=== PATIENT | male | born 1965 | race Caucasian/White ===

== ENCOUNTER 2022-06-12 19:31 | Emergency (ER) | payer MEDICAID ==
[~2022-06-12] VITALS: Ht 172.7 cm; Wt 78.0 kg
[2022-06-12 19:41] VITALS: BP 134/76
--- NOTE | 2022-06-12 19:58 | NUR ---
Patient taken to bed 1.
--- NOTE | 2022-06-12 20:30 | NUR ---
Patient resting in bed, A/Ox4, chest rise and fall symmetrical, no s/s of distress, on monitor.
[2022-06-12 22:25] LABS: BASOPHILS # (AUTO) 0.1 K/uL (0.00-0.22); BASOPHILS % (AUTO) 1.1 % (0.0-2.0); EOSINOPHILS # (AUTO) 2.2 K/uL (0-0.4); EOSINOPHILS % (AUTO) 46.1 % (0.0-4.0); HEMATOCRIT 22.2 % (36-52); HEMOGLOBIN 7.1 g/dL (12.0-18.0); MEAN CORPUSCULAR HEMOGLOBIN 26 pg (27-31); MEAN CORPUSCULAR HGB CONC 32 g/dL (33-37); MEAN CORPUSCULAR VOLUME 81.8 fL (80-94); MONOCYTES # (AUTO) 0.3 K/uL (0.8-1.0); MONOCYTES % (AUTO) 6.3 % (1.7-9.3); NEUTROPHILS # (AUTO) 1.2 K/uL (1.8-7.7); NEUTROPHILS % (AUTO) 25.5 % (42.2-75.2); PLATELET COUNT (AUTO) 87 K/uL (140-450); RED BLOOD CELL COUNT(AUTO) 2.72 MIL/uL (4.20-6.10); RED CELL DISTRIBUTION WIDTH 24.8 % (11.6-13.7); WHITE BLOOD COUNT (AUTO) 4.7 K/uL (4.8-10.8)
[2022-06-12 22:41] LABS: ALBUMIN 1.3 g/dL (3.4-5.0); ANION GAP 10.1 (8-16); ASPARTATE AMINOTRANSFERASE 33 U/L (15-37); CARBON DIOXIDE 23.5 mmol/L (21-32); CHLORIDE 109 mmol/L (98-107); CREATININE 0.8 mg/dL (0.6-1.3); GFR ARICAN-AMERICAN 129 mL/min (>90); GLUCOSE 98 mg/dL (74-106); LIPASE 134 U/L (73-393); POTASSIUM 3.6 mmol/L (3.5-5.1); SODIUM SERUM 139 mmol/L (136-145); TOTAL BILIRUBIN 1.4 mg/dL (0.0-1.0); UREA NITROGEN, BLOOD 7 mg/dL (7-18)
[2022-06-12] MEDS: KETOROLAC 30 MG/ML VIAL IM ONE (22:55)
[2022-06-12] MEDS: HYDROcodone/APAP 5/325 MG 1 TAB TAB PO ONE (22:56)
--- NOTE | 2022-06-12 22:59 | NUR ---
Patient resting in bed, A/Ox4, chest rise and fall symmetrical, no s/s of distress, on monitor.
--- NOTE | 2022-06-13 00:20 | NUR ---
Patient resting in bed, A/Ox4, chest rise and fall symmetrical, no s/s of distress, on monitor. Addendum: 06/13/22 at 0152 by [id number] Patient resting in bed, A/Ox4, chest rise and fall symmetrical, no c/o pain or s/s of distress, on monitor.
[2022-06-13] MEDS ORDERED: BEN10 PO (02:10)
[2022-06-13 02:33] VITALS: BP 121/74
--- NOTE | 2022-06-13 02:33 | NUR ---
Patient resting in bed, A/Ox4, chest rise and fall symmetrical, no c/o pain or s/s of distress, on monitor.
== END 2022-06-13 02:33 | disposition home or self-care (01) ==
LOC: MED 19:31
DX: K74.60 Unspecified cirrhosis of liver (principal); K40.20 Bilateral inguinal hernia, without obstruction or gangrene, not specified as recurrent; D64.9 Anemia, unspecified; D69.6 Thrombocytopenia, unspecified; Z79.899 Other long term (current) drug therapy
CPT/HCPCS: 36415; 74176; 80053; 83690; 84484; 85025; 93005; 96372; 99285; J1885

== ENCOUNTER 2022-12-06 01:15 | Inpatient (IN) | payer MEDICAID, OTHER ==
[~2022-12-06] VITALS: Ht 177.8 cm; Wt 64.2 kg
[2022-12-06] VITALS (20 sets, daily range): BP systolic 117–150; BP diastolic 46–77; PULSE 54–108; RESP 14–39; TEMP 96.4–98.8; O2SAT 97–100
[~2022-12-06 01:15] MED LIST: BEN10 PO
[2022-12-06] MEDS ORDERED: ONDANSETRON 4 MG/2 ML VIAL IVP ONE (01:30)
[2022-12-06 01:48] LABS: BASOPHILS % (AUTO) 0.1 % (0.0-2.0); EOSINOPHILS % (AUTO) 0.1 % (0.0-4.0); LYMPHOCYTES # (AUTO) 0.6 K/uL (2.0-11.5); LYMPHOCYTES % (AUTO) 14.4 % (20.5-51.1); MEAN CORPUSCULAR HEMOGLOBIN 27 pg (27-31); MEAN CORPUSCULAR HGB CONC 30 g/dL (33-37); MEAN CORPUSCULAR VOLUME 91.3 fL (80-94); MONOCYTES # (AUTO) 0.3 K/uL (0.8-1.0); MONOCYTES % (AUTO) 7.1 % (1.7-9.3); NEUTROPHILS # (AUTO) 3.5 K/uL (1.8-7.7); NEUTROPHILS % (AUTO) 78.3 % (42.2-75.2); PLATELET COUNT (AUTO) 39 K/uL (140-450); RED BLOOD CELL COUNT(AUTO) 1.27 MIL/uL (4.20-6.10); WHITE BLOOD COUNT (AUTO) 4.4 K/uL (4.8-10.8)
[2022-12-06 02:03] LABS: HEMOGLOBIN 3.5 g/dL (12.0-18.0)
[2022-12-06 02:04] LABS: HEMATOCRIT 11.6 % (36-52)
[2022-12-06] MEDS ORDERED: PANTOPRAZOLE 40 MG INJ VIAL IVP ONE (02:15)
[2022-12-06] MEDS ORDERED: OCTREOTIDE ACETATE 1.25 MG in NACL 0.9% 250 ML IV STA (02:15)
[2022-12-06] MEDS ORDERED: PANTOPRAZOLE 80 MG in NACL 0.9% 100 ML IVP SCH (02:15)
[2022-12-06 02:19] LABS: ALBUMIN 1.5 g/dL (3.4-5.0); ANION GAP 14.4 (8-16); CALCIUM 6.9 mg/dL (8.5-10.1); CARBON DIOXIDE 23.3 mmol/L (21-32); CREATININE 1.5 mg/dL (0.6-1.3); POTASSIUM 3.7 mmol/L (3.5-5.1); TOTAL BILIRUBIN 5.4 mg/dL (0.0-1.0); TOTAL PROTEIN, SERUM 6.3 g/dL (6.4-8.2)
[2022-12-06] MEDS ORDERED: CALCIUM GLUC 1 GM/50 mL NS BAG 50 ML IV ONE (02:35)
[2022-12-06] MEDS ORDERED: cefTRIAXone 1,000 MG VIAL ONE (02:54)
[2022-12-06 02:56] LABS: PARTIAL THROMBOPLASTIN TIME 43.6 secs (22-35.6)
[2022-12-06] MEDS ORDERED: OCTREOTIDE ACETATE 1000 MCG/5 ML VIAL ONE (02:57)
[2022-12-06 02:58] LABS: INR > 9.00 (0.8-1.2); PROTHROMBIN TIME > 120.0 secs (10.8-13.4)
[2022-12-06] MEDS ORDERED: PHYTONADIONE 10 MG in NACL 0.9% 50 ML IV ONE (03:05)
[2022-12-06] MEDS ORDERED: POTASSIUM CHLORIDE 10 MEQ TABER PO PRN (03:15)
[2022-12-06] MEDS ORDERED: MORPHINE SULFATE 4 MG/ML SYR IVP PRN (03:15)
[2022-12-06] MEDS ORDERED: ONDANSETRON 4 MG/2 ML VIAL IVP PRN (03:15)
[2022-12-06] MEDS ORDERED: MAGNESIUM OXIDE 400 MG TAB PO PRN (03:15)
[2022-12-06] MEDS ORDERED: MAG SULF 2000 MG/WATER PREMIX 50 ML IV PRN (03:15)
[2022-12-06] MEDS ORDERED: KCL 20 MEQ IN 100 mL PREMIX 200 ML IV PRN (03:15)
[2022-12-06] MEDS ORDERED: ONDANSETRON 4 MG/2 ML VIAL ONE (03:19)
[2022-12-06] MEDS ORDERED: PHYTONADIONE 10 MG/ML AMP ONE (03:24)
[2022-12-06] MEDS ORDERED: OCTREOTIDE ACETATE 1.25 MG in NACL 0.9% 250 ML IV SCH (03:25)
[2022-12-06 05:15] LABS: LACTIC ACID 2.4 mmol/L (0.4-2.0)
[2022-12-06 08:47] LABS: BASOPHILS % (AUTO) 0.2 % (0.0-2.0); EOSINOPHILS % (AUTO) 0.2 % (0.0-4.0); LYMPHOCYTES # (AUTO) 0.4 K/uL (2.0-11.5); LYMPHOCYTES % (AUTO) 14.6 % (20.5-51.1); MEAN CORPUSCULAR HEMOGLOBIN 28 pg (27-31); MEAN CORPUSCULAR HGB CONC 31 g/dL (33-37); MEAN CORPUSCULAR VOLUME 92.4 fL (80-94); MONOCYTES # (AUTO) 0.3 K/uL (0.8-1.0); MONOCYTES % (AUTO) 8.3 % (1.7-9.3); NEUTROPHILS # (AUTO) 2.4 K/uL (1.8-7.7); NEUTROPHILS % (AUTO) 76.7 % (42.2-75.2); PLATELET COUNT (AUTO) 30 K/uL (140-450); RED BLOOD CELL COUNT(AUTO) 1.44 MIL/uL (4.20-6.10); RED CELL DISTRIBUTION WIDTH 21.8 % (11.6-13.7); WHITE BLOOD COUNT (AUTO) 3.1 K/uL (4.8-10.8)
[2022-12-06 08:49] LABS: HEMATOCRIT 13.3 % (36-52); HEMOGLOBIN 4.1 g/dL (12.0-18.0)
[2022-12-06] MEDS ORDERED: PANTOPRAZOLE 40 MG INJ VIAL IVP SCH (09:00)
[2022-12-06] MEDS ORDERED: FUROSEMIDE 20 MG/2 ML VIAL IVP SCH ×2 (10:32→17:59)
[2022-12-06] MEDS: PANTOPRAZOLE 80 MG in NACL 0.9% 100 ML IVP SCH ×2 (11:28→21:07)
[2022-12-06] MEDS: OCTREOTIDE ACETATE 1.25 MG in NACL 0.9% 250 ML IV SCH (13:50)
[2022-12-06] MEDS: PROPRANOLOL 20 MG TAB PO SCH ×2 (15:53→19:36)
[2022-12-06 16:09] LABS: APPEARANCE,URINE CLEAR (CLEAR); BILIRUBIN,URINE 1+ (NEGATIVE); BLOOD, URINE TRACE-L (NEGATIVE); LEUKOCYTE ESTERASE ,URINE NEGATIVE (NEGATIVE); NITRITE, URINE NEGATIVE (NEGATIVE); PH,URINE 6.5 (5.0-9.0); PROTEIN,URINE NEGATIVE (NEGATIVE); UGLUCOSE TRACE (NEGATIVE); UROBILINOGEN,URINE >=8.0 EU/dL (0.2 - 1)
[2022-12-06 16:26] LABS: COLOR,URINE ORANGE (YELLOW); ICTOTEST NEGATIVE (NEGATIVE)
[2022-12-06 16:31] LABS: BACTERIA,URINE FEW /HPF (None Seen); RBC,URINE 0-5 /HPF (0-5); WBC,URINE 0-5 /HPF (0-5)
[2022-12-06 16:32] LABS: SQUAMOUS EPITHELIAL CELL,UR 0-3 (FEW) /LPF (0-3 (FEW))
[2022-12-06] MEDS ORDERED: FUROSEMIDE 20 MG/2 ML VIAL IVP ONE (17:55)
[2022-12-06] MEDS: LACTULOSE 20 GM/30 ML UDC PO SCH (20:22)
[2022-12-07] VITALS (24 sets, daily range): BP systolic 108–160; BP diastolic 57–96; PULSE 46–87; RESP 13–20; TEMP 97–98.9; O2SAT 96–100
[2022-12-07 00:59] LABS: HEMATOCRIT 20.7 % (36-52)
[2022-12-07 01:04] LABS: HEMOGLOBIN 6.6 g/dL (12.0-18.0)
[2022-12-07] MEDS: OCTREOTIDE ACETATE 1.25 MG in NACL 0.9% 250 ML IV SCH ×2 (03:18→10:49)
[2022-12-07] MEDS: PANTOPRAZOLE 80 MG in NACL 0.9% 100 ML IVP SCH (05:05)
[2022-12-07 07:14] LABS: BASOPHILS % (AUTO) 0.3 % (0.0-2.0); EOSINOPHILS % (AUTO) 0.4 % (0.0-4.0); HEMOGLOBIN 7.5 g/dL (12.0-18.0); LYMPHOCYTES # (AUTO) 0.5 K/uL (2.0-11.5); LYMPHOCYTES % (AUTO) 22.5 % (20.5-51.1); MEAN CORPUSCULAR HEMOGLOBIN 29 pg (27-31); MEAN CORPUSCULAR HGB CONC 33 g/dL (33-37); MEAN CORPUSCULAR VOLUME 88.8 fL (80-94); MONOCYTES # (AUTO) 0.3 K/uL (0.8-1.0); NEUTROPHILS # (AUTO) 1.4 K/uL (1.8-7.7); NEUTROPHILS % (AUTO) 63.8 % (42.2-75.2); PLATELET COUNT (AUTO) 32 K/uL (140-450); RED BLOOD CELL COUNT(AUTO) 2.59 MIL/uL (4.20-6.10); RED CELL DISTRIBUTION WIDTH 18.3 % (11.6-13.7); WHITE BLOOD COUNT (AUTO) 2.2 K/uL (4.8-10.8)
[2022-12-07 07:35] LABS: ALBUMIN 1.5 g/dL (3.4-5.0); ANION GAP 12.2 (8-16); CALCIUM 6.5 mg/dL (8.5-10.1); CARBON DIOXIDE 25.5 mmol/L (21-32); CREATININE 1.3 mg/dL (0.6-1.3); INR 2.09 (0.8-1.2); PHOSPHORUS 4.9 mg/dL (2.5-4.9); PROTHROMBIN TIME 21.2 secs (10.8-13.4); TOTAL BILIRUBIN 5.5 mg/dL (0.0-1.0); TOTAL PROTEIN, SERUM 5.7 g/dL (6.4-8.2)
[2022-12-07 08:03] LABS: POTASSIUM 2.7 mmol/L (3.5-5.1)
[2022-12-07] MEDS: KCL 20 MEQ IN 100 mL PREMIX 200 ML IV SCH ×2 (08:39→10:13)
[2022-12-07] MEDS: PROPRANOLOL 20 MG TAB PO SCH ×3 (09:00→17:00)
[2022-12-07] MEDS: LACTULOSE 20 GM/30 ML UDC PO SCH ×6 (09:40→21:00)
[2022-12-07] MEDS ORDERED: fentaNYL citrate 0.05 MG/ML VIAL ONE (10:20)
[2022-12-07] MEDS ORDERED: MIDAZOLAM 5 MG/5 ML VIAL ONE (10:20)
[2022-12-07] MEDS ORDERED: POTASSIUM CHLORIDE 20% 40 MEQ/15 ML UDC GT ONE (10:37)
[2022-12-07] MEDS: SODIUM FERRIC GLUCONATE 125 MG in NACL 0.9% 100 ML IV SCH (11:42)
[2022-12-07] MEDS ORDERED: MIDAZOLAM 2 MG/2 ML VIAL IVP ONE ×2 (13:00→13:05)
[2022-12-07] MEDS: SENNA 8.6 MG TAB PO SCH ×2 (13:00→17:23)
[2022-12-07] MEDS ORDERED: fentaNYL citrate 0.05 MG/ML VIAL IVP ONE ×2 (13:00→13:05)
[2022-12-07] MEDS ORDERED: KCL 20 MEQ IN 100 mL PREMIX 200 ML IV ONE (17:55)
[2022-12-08] VITALS (19 sets, daily range): BP systolic 118–149; BP diastolic 66–85; PULSE 52–76; RESP 13–20; TEMP 97–98.8; O2SAT 95–100
[2022-12-08 04:46] LABS: HEMATOCRIT 24.9 % (36-52); HEMOGLOBIN 8.2 g/dL (12.0-18.0); MEAN CORPUSCULAR HEMOGLOBIN 29 pg (27-31); MEAN CORPUSCULAR HGB CONC 33 g/dL (33-37); PLATELET COUNT (AUTO) 36 K/uL (140-450); RED BLOOD CELL COUNT(AUTO) 2.83 MIL/uL (4.20-6.10); RED CELL DISTRIBUTION WIDTH 18.6 % (11.6-13.7); WHITE BLOOD COUNT (AUTO) 3.8 K/uL (4.8-10.8)
[2022-12-08 04:58] LABS: INR 2.33 (0.8-1.2); PARTIAL THROMBOPLASTIN TIME 36.1 secs (22-35.6); PROTHROMBIN TIME 23.5 secs (10.8-13.4)
[2022-12-08 05:02] LABS: ALBUMIN 1.4 g/dL (3.4-5.0); ANION GAP 8.2 (8-16); CALCIUM 6.6 mg/dL (8.5-10.1); CARBON DIOXIDE 26.1 mmol/L (21-32); CREATININE 1.2 mg/dL (0.6-1.3); MAGNESIUM 1.8 mg/dL (1.8-2.4); PHOSPHORUS 2.3 mg/dL (2.5-4.9); POTASSIUM 3.3 mmol/L (3.5-5.1); TOTAL BILIRUBIN 6.6 mg/dL (0.0-1.0); TOTAL PROTEIN, SERUM 5.4 g/dL (6.4-8.2)
[2022-12-08 05:25] LABS: BASOPHILS % (MANUAL) 1 % (0-2); EOSINOPHILS % (MANUAL) 4 % (0-4); LYMPHOCYTES % (MANUAL) 12 % (20-46); MONOCYTES % (MANUAL) 5 % (5-12); PLATELET ESTIMATE DECREASED; SMUDGE CELLS FEW
[2022-12-08] MEDS: SENNA 8.6 MG TAB PO SCH ×2 (08:49→13:17)
[2022-12-08] MEDS: LACTULOSE 20 GM/30 ML UDC PO SCH ×2 (08:49→13:17)
[2022-12-08] MEDS: PROPRANOLOL 20 MG TAB PO SCH ×2 (08:58→13:00)
[2022-12-08] MEDS ORDERED: PHYTONADIONE 10 MG in NACL 0.9% 50 ML IV SCH (09:00)
[2022-12-08] MEDS ORDERED: POTASSIUM CHLORIDE 20% 40 MEQ/15 ML UDC GT SCH (09:00)
[2022-12-08] MEDS: SODIUM PHOS / POTASSIUM PHOS 1 PKT PDR PO SCH ×2 (11:01→11:05)
[2022-12-08] MEDS: SODIUM FERRIC GLUCONATE 125 MG in NACL 0.9% 100 ML IV SCH (13:17)
[2022-12-09] VITALS: BP 128/77; PULSE 70; PULSE 73; RESP 19; TEMP 98.3; O2SAT 95
[2022-12-09 04:00] VITALS: BP 148/88; PULSE 69; PULSE 78; RESP 18; TEMP 97.6; O2SAT 95
== END 2022-12-09 06:30 | disposition left against medical advice (07) | DRG 280 ==
LOC: MED 01:15 → MMU 03:21 → MTU 03:21 → MIC 04:03 → MTU 12-08 17:18
PROVIDERS: ADMIT Internal Medicine; ATTEND Internal Medicine
PROC: 30233K1 Transfusion of Nonautologous Frozen Plasma into Peripheral Vein, Percutaneous Approach (ICD-10-PCS; 2022-12-06)
PROC: 30233N1 Transfusion of Nonautologous Red Blood Cells into Peripheral Vein, Percutaneous Approach (ICD-10-PCS; 2022-12-07)
PROC: 0DJ08ZZ Inspection of Upper Intestinal Tract, Via Natural or Artificial Opening Endoscopic (ICD-10-PCS; principal; 2022-12-07 08:00)
DX: K70.30 Alcoholic cirrhosis of liver without ascites (principal); I85.11 Secondary esophageal varices with bleeding; E43 Unspecified severe protein-calorie malnutrition; K56.609 Unspecified intestinal obstruction, unspecified as to partial versus complete obstruction; N17.9 Acute kidney failure, unspecified; E72.20 Disorder of urea cycle metabolism, unspecified; D68.9 Coagulation defect, unspecified; D69.6 Thrombocytopenia, unspecified; F10.10 Alcohol abuse, uncomplicated; Y90.9 Presence of alcohol in blood, level not specified; K76.6 Portal hypertension; D62 Acute posthemorrhagic anemia; R74.01 Elevation of levels of liver transaminase levels; K40.90 Unilateral inguinal hernia, without obstruction or gangrene, not specified as recurrent; Z68.20 Body mass index [BMI] 20.0-20.9, adult
CPT/HCPCS: 36415; 36430; 71045; 76700; 80053; 81001; 82105; 82140; 82607; 83605; 83690; 83735; 84100; 85018; 85025; 85610; 85730; 86886; 86900; 86901; 86920; 87040; 87081; 96365; 96368; 96375; 99291; 99292; C9113; G0482; J0610; J0696; J1940; J2250; J2354; J2405; J2916; J3010; J3430; J3480; J7030; J7060; P9016; P9017; Q0092

== ENCOUNTER 2023-05-21 04:30 | Inpatient (IN) | payer OTHER ==
[2023-05-21] VITALS (22 sets, daily range): BP systolic 90–139; BP diastolic 55–76; PULSE 81–126; RESP 16–24; TEMP 97.7–100; O2SAT 93–100
[~2023-05-21] VITALS: Ht 152.4 cm; Wt 81.6 kg
[2023-05-21] MEDS ORDERED: PANTOPRAZOLE 40 MG INJ VIAL ONE (04:51)
[2023-05-21] MEDS ORDERED: WATER STERILE 20 ML MC ONE (04:51)
[2023-05-21 05:21] LABS: BASOPHILS % (AUTO) 0.1 % (0.0-2.0); HEMOGLOBIN 7.6 g/dL (12.0-18.0); LYMPHOCYTES # (AUTO) 0.4 K/uL (2.0-11.5); LYMPHOCYTES % (AUTO) 1.8 % (20.5-51.1); MEAN CORPUSCULAR HEMOGLOBIN 35 pg (27-31); MEAN CORPUSCULAR HGB CONC 34 g/dL (33-37); MEAN CORPUSCULAR VOLUME 101.5 fL (80-94); MONOCYTES # (AUTO) 0.9 K/uL (0.8-1.0); MONOCYTES % (AUTO) 3.8 % (1.7-9.3); NEUTROPHILS # (AUTO) 21.5 K/uL (1.8-7.7); NEUTROPHILS % (AUTO) 94.3 % (42.2-75.2); RED BLOOD CELL COUNT(AUTO) 2.17 MIL/uL (4.20-6.10); RED CELL DISTRIBUTION WIDTH 17.3 % (11.6-13.7); WHITE BLOOD COUNT (AUTO) 22.8 K/uL (4.8-10.8)
[2023-05-21] MEDS: PANTOPRAZOLE 40 MG INJ VIAL IVP ONE (05:32)
[2023-05-21] MEDS: PANTOPRAZOLE 80 MG in NACL 0.9% 100 ML IV SCH (05:33)
[2023-05-21 05:38] LABS: INR 1.95 (0.8-1.2); PROTHROMBIN TIME 19.8 secs (10.8-13.4)
[2023-05-21 05:40] LABS: BILIRUBIN,DIRECT 3.8 mg/dL (0.0-0.3); TOTAL BILIRUBIN 5.5 mg/dL (0.0-1.0); TOTAL PROTEIN, SERUM 5.2 g/dL (6.4-8.2)
[2023-05-21] MEDS ORDERED: cefTRIAXone 1,000 MG VIAL ONE (05:44)
[2023-05-21 05:45] LABS: ANION GAP 17.4 (8-16); CALCIUM 6.6 mg/dL (8.5-10.1); CARBON DIOXIDE 18.5 mmol/L (21-32); CREATININE 2.8 mg/dL (0.6-1.3); POTASSIUM 4.9 mmol/L (3.5-5.1)
[2023-05-21 05:47] LABS: PLATELET COUNT (AUTO) 16 K/uL (140-450)
[2023-05-21 05:52] LABS: PARTIAL THROMBOPLASTIN TIME 52.1 secs (22-35.6)
[2023-05-21] MEDS: CALCIUM GLUC 1 GM/50 mL NS BAG 50 ML IV ONE (06:10)
[2023-05-21 06:18] LABS: LACTIC ACID 6.2 mmol/L (0.4-2.0)
[2023-05-21] MEDS: OCTREOTIDE ACETATE 1000 MCG/5 ML VIAL ONE ×3 (06:30→06:46)
[2023-05-21] MEDS: OCTREOTIDE ACETATE 1.25 MG in NACL 0.9% 250 ML IV SCH (06:46)
[2023-05-21] MEDS ORDERED: PHYTONADIONE 10 MG/ML AMP ONE (06:52)
[2023-05-21] MEDS: PHYTONADIONE 10 MG in NACL 0.9% 50 ML IV ONE (07:00)
[2023-05-21] MEDS: NACL 0.9% 2,500 ML IV ONE (07:21)
[2023-05-21 07:28] LABS: BILIRUBIN,URINE 3+ (NEGATIVE); BLOOD, URINE 3+ (NEGATIVE); LEUKOCYTE ESTERASE ,URINE TRACE (NEGATIVE); NITRITE, URINE POSITIVE (NEGATIVE); PROTEIN,URINE 3+ (NEGATIVE); UGLUCOSE TRACE (NEGATIVE)
[2023-05-21 07:41] LABS: APPEARANCE,URINE CLOUDY (CLEAR); COLOR,URINE AMBER (YELLOW)
[2023-05-21 07:42] LABS: BACTERIA,URINE 1+ /HPF (None Seen); ICTOTEST POSITIVE (NEGATIVE); RBC,URINE 20-50 /HPF (0-5); SQUAMOUS EPITHELIAL CELL,UR 0-3 (FEW) /LPF (0-3 (FEW)); WBC,URINE 0-5 /HPF (0-5); YEAST,URINE Few /HPF (None Seen)
[2023-05-21 07:43] LABS: RED BLOOD CELL CASTS,URINE 0-10 /LPF (None Seen)
[2023-05-21] MEDS ORDERED: HYDROcodone/APAP 5/325 MG 1 TAB TAB PO PRN (07:45)
[2023-05-21] MEDS ORDERED: ONDANSETRON 4 MG/2 ML VIAL IVP PRN (07:45)
[2023-05-21] MEDS ORDERED: POTASSIUM CHLORIDE 10 MEQ TABER PO PRN (07:45)
[2023-05-21] MEDS ORDERED: MAGNESIUM OXIDE 400 MG TAB PO PRN (07:45)
[2023-05-21] MEDS: methylPREDNISolone SS 40 MG/ML VIAL IVP SCH (09:39)
[2023-05-21] MEDS: LORazepam 2 MG/ML VIAL ONE (10:38)
[2023-05-21] MEDS ORDERED: MIDAZOLAM MDV 50 MG in NACL 0.9% 40 ML IV PRN (11:05)
[2023-05-21] MEDS ORDERED: PIPERACILLIN/TAZOBACTAM 3.375 GM in DEXTROSE 5% 50 ML IV SCH (12:00)
[2023-05-21] MEDS ORDERED: PIPERACILLIN/TAZOBACTAM 2.25 GM in DEXTROSE 5% 50 ML IV SCH (12:00)
[2023-05-21] MEDS ORDERED: NOREPINEPHRINE 8 MG in DEXTROSE 5% 250 ML IV PRN (12:15)
[2023-05-21] MEDS: PROPOFOL 1000 MG/100 ML PREMIX 100 ML IV PRN (12:21)
[2023-05-21] MEDS: PROPOFOL 1000 MG/100 ML PREMIX 100 ML IV ONE (12:41)
[2023-05-21] MEDS: fentaNYL citrate 0.05 MG/ML VIAL ONE (13:27)
[2023-05-21] MEDS: MIDAZOLAM 2 MG/2 ML VIAL ONE (13:27)
[2023-05-21] MEDS ORDERED: NOREPINEPHRINE 8 MG in NACL 0.9% 250 ML IV PRN (15:00)
[2023-05-21] MEDS ORDERED: COMMUNICATION ORDER MC PRN (15:00)
[2023-05-21] MEDS: TAZOBACTAM IV SCH (15:30)
[2023-05-21] MEDS: NACL 0.9% IV SCH (15:30)
[2023-05-21] MEDS: PIPERACILLIN IV SCH (15:30)
[2023-05-21 15:31] LABS: BLOOD GAS PH 7.318 (7.35-7.45)
[2023-05-21 15:32] LABS: BLOOD GAS BASE EXCESS -6.7 mmol/L (-2.0-2.0); BLOOD GAS HCO3 18.9 mmol/L (22-26); BLOOD GAS O2 SAT% 99.6 % (92.0-98.5); BLOOD GAS PCO2 37.6 mmHg (35-45); BLOOD GAS PO2 240.3 mmHg (75-100)
[2023-05-21 17:21] LABS: HEMATOCRIT 27.2 % (36-52); HEMOGLOBIN 9.3 g/dL (12.0-18.0); MEAN CORPUSCULAR HEMOGLOBIN 33 pg (27-31); MEAN CORPUSCULAR HGB CONC 34 g/dL (33-37); PLATELET COUNT (AUTO) 38 K/uL (140-450); RED BLOOD CELL COUNT(AUTO) 2.78 MIL/uL (4.20-6.10); RED CELL DISTRIBUTION WIDTH 21.1 % (11.6-13.7)
[2023-05-21 17:29] LABS: WHITE BLOOD COUNT (AUTO) 30.2 K/uL (4.8-10.8)
[2023-05-21 19:43] LABS: HYPOCHROMASIA 1+; LYMPHOCYTES % (MANUAL) 1 % (20-46); MONOCYTES % (MANUAL) 2 % (5-12); PLATELET ESTIMATE DECREASED
[2023-05-21] MEDS: levETIRAcetam 1,000 MG in NACL 0.9% 100 ML IV SCH (20:56)
[2023-05-21] MEDS: NACL 0.9% 1,000 ML IV SCH (21:22)
[2023-05-22] VITALS (25 sets, daily range): BP systolic 81–117; BP diastolic 42–64; PULSE 67–94; RESP 13–17; TEMP 97.8–98.2; O2SAT 40–100
[2023-05-22 05:43] LABS: EOSINOPHILS # (AUTO) 1.4 K/uL (0-0.4); EOSINOPHILS % (AUTO) 8.3 % (0.0-4.0); HEMATOCRIT 25.5 % (36-52); HEMOGLOBIN 8.7 g/dL (12.0-18.0); LYMPHOCYTES # (AUTO) 0.6 K/uL (2.0-11.5); LYMPHOCYTES % (AUTO) 3.4 % (20.5-51.1); MEAN CORPUSCULAR HEMOGLOBIN 33 pg (27-31); MEAN CORPUSCULAR HGB CONC 34 g/dL (33-37); MEAN CORPUSCULAR VOLUME 97.9 fL (80-94); MONOCYTES # (AUTO) 0.9 K/uL (0.8-1.0); MONOCYTES % (AUTO) 5.5 % (1.7-9.3); NEUTROPHILS # (AUTO) 13.8 K/uL (1.8-7.7); NEUTROPHILS % (AUTO) 82.8 % (42.2-75.2); PLATELET COUNT (AUTO) 23 K/uL (140-450); RED CELL DISTRIBUTION WIDTH 21.5 % (11.6-13.7); WHITE BLOOD COUNT (AUTO) 16.7 K/uL (4.8-10.8)
[2023-05-22 06:15] LABS: ALBUMIN 0.9 g/dL (3.4-5.0); ANION GAP 13.9 (8-16); CALCIUM 6.7 mg/dL (8.5-10.1); CARBON DIOXIDE 22.1 mmol/L (21-32); CREATININE 3.1 mg/dL (0.6-1.3); TOTAL BILIRUBIN 8.1 mg/dL (0.0-1.0); TOTAL PROTEIN, SERUM 4.8 g/dL (6.4-8.2)
[2023-05-22] MEDS: SODIUM ZIRCONIUM CYCLOSILICATE 10 GM POWD.PACK GT SCH (09:28)
[2023-05-22] MEDS: INSULIN REGULAR, HUMAN 100 UNIT/ML VIAL IVP SCH (10:12)
[2023-05-22] MEDS: DEXTROSE 50% 50 ML SYR IVP SCH (10:15)
[2023-05-22] MEDS: FUROSEMIDE 20 MG/2 ML VIAL IVP SCH (10:18)
[2023-05-22] MEDS: CALCIUM CHLORIDE 10% 1,000 MG in NACL 0.9% 100 ML IV SCH (10:28)
[2023-05-22] MEDS: LACTULOSE 20 GM/30 ML UDC GT SCH (10:29)
[2023-05-22] MEDS: SODIUM ZIRCONIUM CYCLOSILICATE 10 GM POWD.PACK PO SCH (13:12)
[2023-05-22 13:37] LABS: ANION GAP 11.6 (8-16); CALCIUM 6.5 mg/dL (8.5-10.1); CARBON DIOXIDE 22.7 mmol/L (21-32); CREATININE 3.6 mg/dL (0.6-1.3); POTASSIUM 5.3 mmol/L (3.5-5.1)
[2023-05-22] MEDS: ALBUTEROL SULFATE/IPRATROPIU 3 ML SOL IH SCH (13:56)
[2023-05-23] VITALS (26 sets, daily range): BP systolic 87–122; BP diastolic 53–75; PULSE 64–88; RESP 13–19; TEMP 96.8–97.6; O2SAT 96–100
[2023-05-23 05:38] LABS: BASOPHILS % (AUTO) 0.2 % (0.0-2.0); EOSINOPHILS % (AUTO) 0.2 % (0.0-4.0); HEMATOCRIT 24.2 % (36-52); HEMOGLOBIN 8.3 g/dL (12.0-18.0); LYMPHOCYTES # (AUTO) 0.6 K/uL (2.0-11.5); LYMPHOCYTES % (AUTO) 9.2 % (20.5-51.1); MEAN CORPUSCULAR HEMOGLOBIN 34 pg (27-31); MEAN CORPUSCULAR HGB CONC 34 g/dL (33-37); MEAN CORPUSCULAR VOLUME 98.5 fL (80-94); MONOCYTES # (AUTO) 0.6 K/uL (0.8-1.0); MONOCYTES % (AUTO) 9.6 % (1.7-9.3); NEUTROPHILS # (AUTO) 5.1 K/uL (1.8-7.7); NEUTROPHILS % (AUTO) 80.8 % (42.2-75.2); RED BLOOD CELL COUNT(AUTO) 2.46 MIL/uL (4.20-6.10); RED CELL DISTRIBUTION WIDTH 21.2 % (11.6-13.7); WHITE BLOOD COUNT (AUTO) 6.3 K/uL (4.8-10.8)
[2023-05-23 06:43] LABS: ALBUMIN 0.9 g/dL (3.4-5.0); ANION GAP 17.2 (8-16); CALCIUM 6.3 mg/dL (8.5-10.1); CARBON DIOXIDE 17.9 mmol/L (21-32); CREATININE 3.9 mg/dL (0.6-1.3); POTASSIUM 5.1 mmol/L (3.5-5.1); TOTAL BILIRUBIN 6.1 mg/dL (0.0-1.0); TOTAL PROTEIN, SERUM 4.8 g/dL (6.4-8.2)
[2023-05-23 07:21] LABS: PLATELET COUNT (AUTO) 17 K/uL (140-450)
[2023-05-23] MEDS: LANSOPRAZOLE 30 MG CAPDR GT SCH (08:27)
[2023-05-23] MEDS: FUROSEMIDE 100 MG/10 ML VIAL IV SCH (14:00)
[2023-05-23] MEDS ORDERED: HYDRAGUARD CREAM TP PRN (15:35)
[2023-05-23] MEDS ORDERED: FOAM DRESSING TP PRN (15:35)
[2023-05-23] MEDS: DEXMEDETOMIDINE HCL 400 MCG in NACL 0.9% 96 ML IV PRN (17:07)
[2023-05-24] VITALS (33 sets, daily range): BP systolic 83–119; BP diastolic 55–74; PULSE 51–70; RESP 14–22; TEMP 95.5–97.7; O2SAT 96–100
[2023-05-24] MEDS: HYDRAGUARD CREAM TP SCH (00:33)
[2023-05-24 04:50] LABS: BASOPHILS % (AUTO) 0.1 % (0.0-2.0); HEMATOCRIT 21.5 % (36-52); HEMOGLOBIN 7.4 g/dL (12.0-18.0); LYMPHOCYTES # (AUTO) 0.3 K/uL (2.0-11.5); LYMPHOCYTES % (AUTO) 14.7 % (20.5-51.1); MEAN CORPUSCULAR HEMOGLOBIN 34 pg (27-31); MEAN CORPUSCULAR HGB CONC 34 g/dL (33-37); MEAN CORPUSCULAR VOLUME 98.4 fL (80-94); MONOCYTES # (AUTO) 0.2 K/uL (0.8-1.0); MONOCYTES % (AUTO) 10.6 % (1.7-9.3); NEUTROPHILS # (AUTO) 1.6 K/uL (1.8-7.7); NEUTROPHILS % (AUTO) 73.6 % (42.2-75.2); RED BLOOD CELL COUNT(AUTO) 2.19 MIL/uL (4.20-6.10); RED CELL DISTRIBUTION WIDTH 20.5 % (11.6-13.7); WHITE BLOOD COUNT (AUTO) 2.1 K/uL (4.8-10.8)
[2023-05-24 05:28] LABS: ALBUMIN 0.9 g/dL (3.4-5.0); CALCIUM 6.2 mg/dL (8.5-10.1); CARBON DIOXIDE 16.8 mmol/L (21-32); CREATININE 3.9 mg/dL (0.6-1.3); POTASSIUM 4.8 mmol/L (3.5-5.1); TOTAL BILIRUBIN 4.2 mg/dL (0.0-1.0); TOTAL PROTEIN, SERUM 4.9 g/dL (6.4-8.2)
[2023-05-24 05:47] LABS: PLATELET COUNT (AUTO) 11 K/uL (140-450)
[2023-05-24] MEDS: FOAM DRESSING TP SCH (13:00)
[2023-05-24] MEDS: THIAMINE 200 MG/2 ML VIAL IM SCH (14:39)
[2023-05-24] MEDS: BUMETANIDE 1 MG/4 ML VIAL IV SCH (18:49)
[2023-05-25] VITALS (28 sets, daily range): BP systolic 83–121; BP diastolic 44–81; PULSE 56–81; RESP 14–25; TEMP 96.2–98.1; O2SAT 94–100
[2023-05-25 06:10] LABS: BASOPHILS % (AUTO) 0.1 % (0.0-2.0); EOSINOPHILS % (AUTO) 0.2 % (0.0-4.0); HEMATOCRIT 22.2 % (36-52); HEMOGLOBIN 7.7 g/dL (12.0-18.0); LYMPHOCYTES # (AUTO) 0.3 K/uL (2.0-11.5); LYMPHOCYTES % (AUTO) 11.5 % (20.5-51.1); MEAN CORPUSCULAR HEMOGLOBIN 34 pg (27-31); MEAN CORPUSCULAR HGB CONC 35 g/dL (33-37); MEAN CORPUSCULAR VOLUME 97.8 fL (80-94); MONOCYTES # (AUTO) 0.2 K/uL (0.8-1.0); MONOCYTES % (AUTO) 8.2 % (1.7-9.3); NEUTROPHILS # (AUTO) 2.2 K/uL (1.8-7.7); RED BLOOD CELL COUNT(AUTO) 2.27 MIL/uL (4.20-6.10); RED CELL DISTRIBUTION WIDTH 20.3 % (11.6-13.7); WHITE BLOOD COUNT (AUTO) 2.7 K/uL (4.8-10.8)
[2023-05-25 06:23] LABS: PLATELET COUNT (AUTO) 14 K/uL (140-450)
[2023-05-25 06:29] LABS: PHOSPHORUS 7.1 mg/dL (2.5-4.9)
[2023-05-25 06:40] LABS: ANION GAP 16.2 (8-16); CALCIUM 6.5 mg/dL (8.5-10.1); CARBON DIOXIDE 18.3 mmol/L (21-32); CREATININE 3.4 mg/dL (0.6-1.3); POTASSIUM 4.5 mmol/L (3.5-5.1); TOTAL BILIRUBIN 3.7 mg/dL (0.0-1.0)
[2023-05-25] MEDS: THIAMINE 100 MG TAB PO SCH (08:36)
[2023-05-25] MEDS: BUMETANIDE 1 MG/4 ML VIAL IV ONE (08:43)
[2023-05-25] MEDS: BUMETANIDE ONE (09:34)
[2023-05-25 13:47] LABS: BLOOD GAS BASE EXCESS -7.7 mmol/L (-2.0-2.0); BLOOD GAS HCO3 14.9 mmol/L (22-26); BLOOD GAS PCO2 21.4 mmHg (35-45); BLOOD GAS PO2 74.7 mmHg (75-100)
[2023-05-25 13:48] LABS: BLOOD GAS O2 SAT% 94.2 % (92.0-98.5)
[2023-05-25 15:03] LABS: INR 1.86 (0.8-1.2); PARTIAL THROMBOPLASTIN TIME 35.8 secs (22-35.6)
[2023-05-25] MEDS: SODIUM BICARBONATE 8.4% PFS 50 MEQ/50 ML SYR IVP SCH (15:53)
[2023-05-25] MEDS: BUMETANIDE 1 MG/4 ML VIAL IV SCH (17:33)
[2023-05-25] MEDS: QUEtiapine FUMARATE 25 MG TAB NG SCH (21:07)
[2023-05-26] VITALS (33 sets, daily range): BP systolic 98–114; BP diastolic 61–76; PULSE 60–97; RESP 18–25; TEMP 96.3–97.8; O2SAT 90–100
[2023-05-26 04:34] LABS: BASOPHILS % (AUTO) 0.1 % (0.0-2.0); HEMATOCRIT 22.7 % (36-52); LYMPHOCYTES # (AUTO) 0.3 K/uL (2.0-11.5); LYMPHOCYTES % (AUTO) 7.3 % (20.5-51.1); MEAN CORPUSCULAR HEMOGLOBIN 34 pg (27-31); MEAN CORPUSCULAR HGB CONC 35 g/dL (33-37); MEAN CORPUSCULAR VOLUME 95.9 fL (80-94); MONOCYTES # (AUTO) 0.2 K/uL (0.8-1.0); MONOCYTES % (AUTO) 5.6 % (1.7-9.3); NEUTROPHILS # (AUTO) 3.6 K/uL (1.8-7.7); RED BLOOD CELL COUNT(AUTO) 2.36 MIL/uL (4.20-6.10); WHITE BLOOD COUNT (AUTO) 4.1 K/uL (4.8-10.8)
[2023-05-26 04:38] LABS: PLATELET COUNT (AUTO) 19 K/uL (140-450)
[2023-05-26 04:53] LABS: ANION GAP 19.9 (8-16); CALCIUM 6.3 mg/dL (8.5-10.1); CARBON DIOXIDE 17.4 mmol/L (21-32); CREATININE 2.9 mg/dL (0.6-1.3); POTASSIUM 4.3 mmol/L (3.5-5.1); TOTAL PROTEIN, SERUM 5.1 g/dL (6.4-8.2)
[2023-05-26] MEDS: DEXT 5% /NACL 0.9% 1,000 ML IV SCH (08:53)
[2023-05-26] MEDS: DEXMEDETOMIDINE HCL 100 MCG/ML 2 ML VIAL IV ONE (13:29)
[2023-05-26] MEDS: SODIUM BICARBONATE 8.4% 150 MEQ in DEXTROSE 5% 1,000 ML IV SCH (14:15)
[2023-05-27] VITALS (42 sets, daily range): BP systolic 114–140; BP diastolic 68–85; PULSE 57–76; RESP 11–21; TEMP 94–96; O2SAT 95–100
[2023-05-27 07:31] LABS: BASOPHILS % (AUTO) 0.2 % (0.0-2.0); EOSINOPHILS % (AUTO) 0.2 % (0.0-4.0); HEMATOCRIT 23.6 % (36-52); HEMOGLOBIN 8.2 g/dL (12.0-18.0); LYMPHOCYTES # (AUTO) 0.3 K/uL (2.0-11.5); LYMPHOCYTES % (AUTO) 7.1 % (20.5-51.1); MEAN CORPUSCULAR HEMOGLOBIN 34 pg (27-31); MEAN CORPUSCULAR HGB CONC 35 g/dL (33-37); MEAN CORPUSCULAR VOLUME 97.2 fL (80-94); MONOCYTES # (AUTO) 0.2 K/uL (0.8-1.0); NEUTROPHILS % (AUTO) 86.5 % (42.2-75.2); PLATELET COUNT (AUTO) 23 K/uL (140-450); RED BLOOD CELL COUNT(AUTO) 2.43 MIL/uL (4.20-6.10); RED CELL DISTRIBUTION WIDTH 19.8 % (11.6-13.7); WHITE BLOOD COUNT (AUTO) 3.5 K/uL (4.8-10.8)
[2023-05-27 07:37] LABS: ANION GAP 20.2 (8-16); CALCIUM 6.8 mg/dL (8.5-10.1); CARBON DIOXIDE 17.4 mmol/L (21-32); CREATININE 2.5 mg/dL (0.6-1.3); POTASSIUM 3.6 mmol/L (3.5-5.1)
[2023-05-27] MEDS ORDERED: CALCIUM GLUCONATE 10% 1,000 MG in NACL 0.9% 50 ML IV ONE (12:20)
[2023-05-27 13:10] LABS: BLOOD GAS HCO3 20.4 mmol/L (22-26); BLOOD GAS PCO2 26.7 mmHg (35-45); BLOOD GAS PO2 80.6 mmHg (75-100)
[2023-05-27 13:11] LABS: BLOOD GAS O2 SAT% 95.3 % (92.0-98.5)
[2023-05-27] MEDS: CALCIUM GLUC 1 GM/50 mL NS BAG 50 ML IV SCH (13:18)
[2023-05-27] MEDS: PIPERACILLIN/TAZOBACTAM 2.25 GM in DEXTROSE 5% 50 ML IV SCH (13:19)
[2023-05-27] MEDS: METOCLOPRAMIDE 10 MG/2 ML INJ VIAL IVP SCH (13:19)
[2023-05-28] VITALS (31 sets, daily range): BP systolic 96–155; BP diastolic 52–101; PULSE 59–128; RESP 13–40; TEMP 95.7–98.5; O2SAT 94–100
[2023-05-28 06:08] LABS: BASOPHILS % (AUTO) 0.2 % (0.0-2.0); EOSINOPHILS % (AUTO) 0.1 % (0.0-4.0); HEMATOCRIT 22.4 % (36-52); HEMOGLOBIN 7.6 g/dL (12.0-18.0); LYMPHOCYTES # (AUTO) 0.3 K/uL (2.0-11.5); LYMPHOCYTES % (AUTO) 8.1 % (20.5-51.1); MEAN CORPUSCULAR HEMOGLOBIN 34 pg (27-31); MEAN CORPUSCULAR HGB CONC 34 g/dL (33-37); MEAN CORPUSCULAR VOLUME 98.2 fL (80-94); MONOCYTES # (AUTO) 0.1 K/uL (0.8-1.0); MONOCYTES % (AUTO) 2.8 % (1.7-9.3); NEUTROPHILS # (AUTO) 3.8 K/uL (1.8-7.7); NEUTROPHILS % (AUTO) 88.8 % (42.2-75.2); PLATELET COUNT (AUTO) 23 K/uL (140-450); RED BLOOD CELL COUNT(AUTO) 2.28 MIL/uL (4.20-6.10); RED CELL DISTRIBUTION WIDTH 19.9 % (11.6-13.7); WHITE BLOOD COUNT (AUTO) 4.2 K/uL (4.8-10.8)
[2023-05-28 06:43] LABS: ALBUMIN 0.9 g/dL (3.4-5.0); ANION GAP 12.9 (8-16); CALCIUM 6.6 mg/dL (8.5-10.1); CARBON DIOXIDE 25.5 mmol/L (21-32); CREATININE 1.7 mg/dL (0.6-1.3); POTASSIUM 3.4 mmol/L (3.5-5.1); TOTAL BILIRUBIN 4.2 mg/dL (0.0-1.0); TOTAL PROTEIN, SERUM 4.6 g/dL (6.4-8.2)
[2023-05-28] MEDS: LACTULOSE 20 GM/30 ML UDC ONE (07:54)
[2023-05-28] MEDS: LACTULOSE 20 GM/30 ML UDC NG SCH (08:01)
[2023-05-28] MEDS: CALCIUM GLUC 1 GM/50 mL NS BAG 50 ML IV SCH (10:18)
[2023-05-28] MEDS: POTASSIUM CHLORIDE 20% 40 MEQ/15 ML UDC GT PRN (10:49)
[2023-05-28] MEDS ORDERED: LACTULOSE 20 GM/30 ML UDC NG SCH (13:00)
[2023-05-28] MEDS: MORPHINE SULFATE 4 MG/ML SYR IVP PRN (16:02)
[2023-05-28] MEDS: LORazepam 2 MG/ML VIAL IVP PRN (18:53)
[2023-05-29] VITALS (21 sets, daily range): BP systolic 115–143; BP diastolic 66–88; PULSE 83–125; RESP 11–26; TEMP 96.8–98.6; O2SAT 92–100
[2023-05-29 05:56] LABS: BASOPHILS # (AUTO) 0.1 K/uL (0.00-0.22); BASOPHILS % (AUTO) 0.9 % (0.0-2.0); HEMATOCRIT 29.2 % (36-52); HEMOGLOBIN 9.8 g/dL (12.0-18.0); LYMPHOCYTES # (AUTO) 0.7 K/uL (2.0-11.5); LYMPHOCYTES % (AUTO) 5.3 % (20.5-51.1); MEAN CORPUSCULAR HEMOGLOBIN 33 pg (27-31); MEAN CORPUSCULAR HGB CONC 34 g/dL (33-37); MEAN CORPUSCULAR VOLUME 98.7 fL (80-94); MONOCYTES # (AUTO) 0.8 K/uL (0.8-1.0); MONOCYTES % (AUTO) 5.7 % (1.7-9.3); NEUTROPHILS # (AUTO) 11.9 K/uL (1.8-7.7); NEUTROPHILS % (AUTO) 88.1 % (42.2-75.2); PLATELET COUNT (AUTO) 48 K/uL (140-450); RED BLOOD CELL COUNT(AUTO) 2.96 MIL/uL (4.20-6.10); WHITE BLOOD COUNT (AUTO) 13.5 K/uL (4.8-10.8)
[2023-05-29 06:24] LABS: ANION GAP 11.7 (8-16); CALCIUM 7.1 mg/dL (8.5-10.1); CARBON DIOXIDE 28.8 mmol/L (21-32); CREATININE 1.7 mg/dL (0.6-1.3); POTASSIUM 3.5 mmol/L (3.5-5.1)
[2023-05-29 06:28] LABS: INR 1.68 (0.8-1.2); PARTIAL THROMBOPLASTIN TIME 32.9 secs (22-35.6); PROTHROMBIN TIME 17.2 secs (10.8-13.4)
[2023-05-29 06:58] LABS: FREE T4 (FREE THYROXINE) 1.55 ng/dL (0.76-1.46); THYROID STIMULATING HORMONE 3.22 uIU/mL (0.34-3.74)
[2023-05-29] MEDS: DEXT 5% /NACL 0.9% 1,000 ML IV SCH (10:17)
[2023-05-29] MEDS: PANTOPRAZOLE 40 MG INJ VIAL IVP SCH (10:17)
[2023-05-29] MEDS: ALBUTEROL SULFATE/IPRATROPIU 3 ML SOL IH PRN (12:28)
[2023-05-29] MEDS ORDERED: TPN PER PHARMACY MC PRN (13:10)
[2023-05-30] VITALS (17 sets, daily range): BP systolic 111–155; BP diastolic 71–98; PULSE 55–106; RESP 10–24; TEMP 96.8–97.4; O2SAT 21–100
[2023-05-30 05:30] LABS: ANION GAP 10.1 (8-16); CALCIUM 7.3 mg/dL (8.5-10.1); CARBON DIOXIDE 28.2 mmol/L (21-32); CREATININE 1.6 mg/dL (0.6-1.3); POTASSIUM 3.3 mmol/L (3.5-5.1)
[2023-05-30 05:52] LABS: BASOPHILS % (AUTO) 0.2 % (0.0-2.0); EOSINOPHILS # (AUTO) 0.1 K/uL (0-0.4); EOSINOPHILS % (AUTO) 1.4 % (0.0-4.0); HEMOGLOBIN 8.6 g/dL (12.0-18.0); LYMPHOCYTES # (AUTO) 0.5 K/uL (2.0-11.5); LYMPHOCYTES % (AUTO) 4.9 % (20.5-51.1); MEAN CORPUSCULAR HEMOGLOBIN 34 pg (27-31); MEAN CORPUSCULAR HGB CONC 34 g/dL (33-37); MEAN CORPUSCULAR VOLUME 100.3 fL (80-94); MONOCYTES # (AUTO) 0.7 K/uL (0.8-1.0); MONOCYTES % (AUTO) 7.2 % (1.7-9.3); NEUTROPHILS # (AUTO) 8.7 K/uL (1.8-7.7); NEUTROPHILS % (AUTO) 86.3 % (42.2-75.2); PLATELET COUNT (AUTO) 35 K/uL (140-450); RED BLOOD CELL COUNT(AUTO) 2.49 MIL/uL (4.20-6.10); RED CELL DISTRIBUTION WIDTH 20.8 % (11.6-13.7); WHITE BLOOD COUNT (AUTO) 10.1 K/uL (4.8-10.8)
[2023-05-30 05:53] LABS: MAGNESIUM 2.2 mg/dL (1.8-2.4); PHOSPHORUS 5.1 mg/dL (2.5-4.9)
[2023-05-30] MEDS: LORazepam 2 MG/ML VIAL IM/IVP PRN (16:44)
[2023-05-30] MEDS: BLOOD GLUCOSE MONITORING 1 DEV DEV MC SCH (20:00)
[2023-05-30] MEDS ORDERED: INSULIN LISPRO SLIDING SCALE 100 UNITS/ML VIAL SUBQ PRN (20:00)
[2023-05-30] MEDS: MULTIVITAMIN IV SCH (21:13)
[2023-05-30] MEDS: DEXTROSE 50% IV SCH (21:13)
[2023-05-30] MEDS: AMINO ACIDS 8.5% IV SCH (21:13)
[2023-05-30] MEDS: THIAMINE IV SCH (21:13)
[2023-05-31] VITALS (27 sets, daily range): BP systolic 128–158; BP diastolic 72–98; PULSE 55–103; RESP 12–28; TEMP 96.9–97.7; O2SAT 15–100
[2023-05-31] MEDS: MEROPENEM 1,000 MG in NACL 0.9% 50 ML IV SCH (00:19)
[2023-05-31] MEDS ORDERED: MEROPENEM 1,000 MG in NACL 0.9% 50 ML IV SCH (05:00)
[2023-05-31 06:12] LABS: BASOPHILS % (AUTO) 0.1 % (0.0-2.0); EOSINOPHILS # (AUTO) 0.2 K/uL (0-0.4); EOSINOPHILS % (AUTO) 1.6 % (0.0-4.0); HEMATOCRIT 23.9 % (36-52); HEMOGLOBIN 8.2 g/dL (12.0-18.0); LYMPHOCYTES # (AUTO) 0.5 K/uL (2.0-11.5); LYMPHOCYTES % (AUTO) 5.3 % (20.5-51.1); MEAN CORPUSCULAR HEMOGLOBIN 34 pg (27-31); MEAN CORPUSCULAR HGB CONC 34 g/dL (33-37); MEAN CORPUSCULAR VOLUME 99.2 fL (80-94); MONOCYTES # (AUTO) 0.8 K/uL (0.8-1.0); NEUTROPHILS # (AUTO) 8.1 K/uL (1.8-7.7); PLATELET COUNT (AUTO) 26 K/uL (140-450); RED BLOOD CELL COUNT(AUTO) 2.41 MIL/uL (4.20-6.10); RED CELL DISTRIBUTION WIDTH 20.3 % (11.6-13.7); WHITE BLOOD COUNT (AUTO) 9.6 K/uL (4.8-10.8)
[2023-05-31 06:37] LABS: ANION GAP 11.2 (8-16); CALCIUM 7.6 mg/dL (8.5-10.1); CARBON DIOXIDE 26.9 mmol/L (21-32); CREATININE 1.5 mg/dL (0.6-1.3); POTASSIUM 3.1 mmol/L (3.5-5.1)
[2023-05-31 06:42] LABS: MAGNESIUM 2.3 mg/dL (1.8-2.4); PHOSPHORUS 3.7 mg/dL (2.5-4.9)
[2023-05-31] MEDS: POTASSIUM CHLORIDE 40 MEQ, LIDOCAINE 1% 25 MG in NACL 0.9% 250 ML IV PRN (11:03)
[2023-05-31] MEDS: bisacodyL 10 MG SUPP RC SCH (12:25)
[2023-05-31] MEDS: DEXTROSE 5% 1,000 ML IV SCH (21:03)
[2023-06-01] VITALS (31 sets, daily range): BP systolic 125–151; BP diastolic 75–93; PULSE 101–120; RESP 13–28; TEMP 97.2–98.7; O2SAT 96–100
[2023-06-01 06:00] LABS: BASOPHILS % (AUTO) 0.5 % (0.0-2.0); EOSINOPHILS # (AUTO) 0.1 K/uL (0-0.4); EOSINOPHILS % (AUTO) 1.9 % (0.0-4.0); HEMATOCRIT 22.8 % (36-52); HEMOGLOBIN 7.7 g/dL (12.0-18.0); LYMPHOCYTES # (AUTO) 0.6 K/uL (2.0-11.5); LYMPHOCYTES % (AUTO) 8.4 % (20.5-51.1); MEAN CORPUSCULAR HEMOGLOBIN 34 pg (27-31); MEAN CORPUSCULAR HGB CONC 34 g/dL (33-37); MEAN CORPUSCULAR VOLUME 99.3 fL (80-94); MONOCYTES # (AUTO) 0.9 K/uL (0.8-1.0); MONOCYTES % (AUTO) 12.6 % (1.7-9.3); NEUTROPHILS # (AUTO) 5.4 K/uL (1.8-7.7); NEUTROPHILS % (AUTO) 76.6 % (42.2-75.2); PLATELET COUNT (AUTO) 26 K/uL (140-450); RED CELL DISTRIBUTION WIDTH 19.8 % (11.6-13.7)
[2023-06-01 06:14] LABS: MAGNESIUM 2.4 mg/dL (1.8-2.4); PHOSPHORUS 2.9 mg/dL (2.5-4.9)
[2023-06-01 06:25] LABS: ANION GAP 9.5 (8-16); CALCIUM 7.6 mg/dL (8.5-10.1); CARBON DIOXIDE 27.9 mmol/L (21-32); CREATININE 1.3 mg/dL (0.6-1.3); POTASSIUM 3.4 mmol/L (3.5-5.1)
[2023-06-01] MEDS: MULTIVITAMIN IV SCH (20:47)
[2023-06-01] MEDS: THIAMINE IV SCH (20:47)
[2023-06-01] MEDS: DEXTROSE IV SCH (20:47)
[2023-06-01] MEDS: [UNRECOGNIZED DRUG - OTHER] IV SCH (20:47)
[2023-06-01] MEDS: bisacodyL 10 MG SUPP RC SCH (21:52)
[2023-06-02] VITALS (27 sets, daily range): BP systolic 112–170; BP diastolic 78–99; PULSE 105–118; RESP 13–28; TEMP 97.8–99.5; O2SAT 86–100
[2023-06-02 05:47] LABS: ANION GAP 7.7 (8-16); CALCIUM 7.6 mg/dL (8.5-10.1); CARBON DIOXIDE 29.1 mmol/L (21-32); CREATININE 1.4 mg/dL (0.6-1.3); POTASSIUM 3.8 mmol/L (3.5-5.1)
[2023-06-02 05:50] LABS: LACTIC ACID 1.4 mmol/L (0.4-2.0)
[2023-06-02 05:53] LABS: BASOPHILS # (AUTO) 0.1 K/uL (0.00-0.22); EOSINOPHILS # (AUTO) 0.1 K/uL (0-0.4); EOSINOPHILS % (AUTO) 1.7 % (0.0-4.0); HEMATOCRIT 22.9 % (36-52); HEMOGLOBIN 7.7 g/dL (12.0-18.0); LYMPHOCYTES # (AUTO) 1.1 K/uL (2.0-11.5); LYMPHOCYTES % (AUTO) 14.5 % (20.5-51.1); MEAN CORPUSCULAR HEMOGLOBIN 34 pg (27-31); MEAN CORPUSCULAR HGB CONC 34 g/dL (33-37); MEAN CORPUSCULAR VOLUME 99.7 fL (80-94); MONOCYTES # (AUTO) 1.1 K/uL (0.8-1.0); MONOCYTES % (AUTO) 14.9 % (1.7-9.3); NEUTROPHILS # (AUTO) 5.2 K/uL (1.8-7.7); NEUTROPHILS % (AUTO) 67.9 % (42.2-75.2); PLATELET COUNT (AUTO) 33 K/uL (140-450); RED BLOOD CELL COUNT(AUTO) 2.29 MIL/uL (4.20-6.10); RED CELL DISTRIBUTION WIDTH 19.9 % (11.6-13.7); WHITE BLOOD COUNT (AUTO) 7.6 K/uL (4.8-10.8)
[2023-06-02 06:43] LABS: MAGNESIUM 2.3 mg/dL (1.8-2.4); PHOSPHORUS 2.4 mg/dL (2.5-4.9)
[2023-06-03] VITALS (29 sets, daily range): BP systolic 114–144; BP diastolic 70–86; PULSE 99–112; RESP 12–31; TEMP 97.7–99.8; O2SAT 94–100
[2023-06-03 05:37] LABS: BASOPHILS # (AUTO) 0.1 K/uL (0.00-0.22); BASOPHILS % (AUTO) 1.5 % (0.0-2.0); EOSINOPHILS # (AUTO) 0.1 K/uL (0-0.4); EOSINOPHILS % (AUTO) 1.8 % (0.0-4.0); HEMATOCRIT 21.1 % (36-52); HEMOGLOBIN 7.2 g/dL (12.0-18.0); LYMPHOCYTES # (AUTO) 1.1 K/uL (2.0-11.5); LYMPHOCYTES % (AUTO) 13.6 % (20.5-51.1); MEAN CORPUSCULAR HEMOGLOBIN 34 pg (27-31); MEAN CORPUSCULAR HGB CONC 34 g/dL (33-37); MEAN CORPUSCULAR VOLUME 99.2 fL (80-94); MONOCYTES # (AUTO) 1.1 K/uL (0.8-1.0); MONOCYTES % (AUTO) 13.3 % (1.7-9.3); NEUTROPHILS # (AUTO) 5.7 K/uL (1.8-7.7); NEUTROPHILS % (AUTO) 69.8 % (42.2-75.2); PLATELET COUNT (AUTO) 36 K/uL (140-450); RED BLOOD CELL COUNT(AUTO) 2.13 MIL/uL (4.20-6.10); RED CELL DISTRIBUTION WIDTH 19.8 % (11.6-13.7); WHITE BLOOD COUNT (AUTO) 8.2 K/uL (4.8-10.8)
[2023-06-03 06:16] LABS: MAGNESIUM 2.5 mg/dL (1.8-2.4); PHOSPHORUS 2.8 mg/dL (2.5-4.9)
[2023-06-03 06:17] LABS: ANION GAP 6.3 (8-16); CALCIUM 7.3 mg/dL (8.5-10.1); CARBON DIOXIDE 29.8 mmol/L (21-32); CREATININE 1.4 mg/dL (0.6-1.3); POTASSIUM 4.1 mmol/L (3.5-5.1)
[2023-06-03] MEDS: POLYETHYLENE GLYCOL 17 GM/PKT PO SCH (13:27)
[2023-06-04] VITALS (27 sets, daily range): BP systolic 115–139; BP diastolic 52–88; PULSE 90–109; RESP 12–26; TEMP 97.1–97.7; O2SAT 98–100
[2023-06-04 05:58] LABS: BASOPHILS # (AUTO) 0.1 K/uL (0.00-0.22); BASOPHILS % (AUTO) 1.5 % (0.0-2.0); EOSINOPHILS # (AUTO) 0.2 K/uL (0-0.4); EOSINOPHILS % (AUTO) 2.3 % (0.0-4.0); LYMPHOCYTES # (AUTO) 0.9 K/uL (2.0-11.5); LYMPHOCYTES % (AUTO) 10.8 % (20.5-51.1); MEAN CORPUSCULAR HEMOGLOBIN 34 pg (27-31); MEAN CORPUSCULAR HGB CONC 35 g/dL (33-37); MEAN CORPUSCULAR VOLUME 98.9 fL (80-94); MONOCYTES # (AUTO) 0.9 K/uL (0.8-1.0); MONOCYTES % (AUTO) 11.8 % (1.7-9.3); NEUTROPHILS # (AUTO) 5.9 K/uL (1.8-7.7); NEUTROPHILS % (AUTO) 73.6 % (42.2-75.2); PLATELET COUNT (AUTO) 35 K/uL (140-450); RED BLOOD CELL COUNT(AUTO) 1.92 MIL/uL (4.20-6.10); RED CELL DISTRIBUTION WIDTH 19.3 % (11.6-13.7)
[2023-06-04 06:17] LABS: ANION GAP 7.7 (8-16); CALCIUM 7.1 mg/dL (8.5-10.1); CARBON DIOXIDE 29.2 mmol/L (21-32); CREATININE 1.5 mg/dL (0.6-1.3); POTASSIUM 4.9 mmol/L (3.5-5.1)
[2023-06-04 06:25] LABS: MAGNESIUM 2.4 mg/dL (1.8-2.4)
[2023-06-04 06:29] LABS: HEMOGLOBIN 6.6 g/dL (12.0-18.0)
[2023-06-04 06:30] LABS: HEMATOCRIT 18.9 % (36-52)
[2023-06-04 10:06] LABS: AFP (TUMOR MARKER) <1.8 ng/mL (0.0-8.4)
[2023-06-04] MEDS: MORPHINE SULFATE 2 MG/ML SYR IVP PRN (11:49)
[2023-06-04 13:42] LABS: CARCINOEMBRYONIC AG 6.8 ng/mL (0.0-4.7)
[2023-06-04 15:05] LABS: BASOPHILS # (AUTO) 0.1 K/uL (0.00-0.22); BASOPHILS % (AUTO) 1.5 % (0.0-2.0); EOSINOPHILS # (AUTO) 0.1 K/uL (0-0.4); EOSINOPHILS % (AUTO) 1.7 % (0.0-4.0); HEMATOCRIT 20.3 % (36-52); HEMOGLOBIN 7.1 g/dL (12.0-18.0); LYMPHOCYTES # (AUTO) 0.8 K/uL (2.0-11.5); LYMPHOCYTES % (AUTO) 10.7 % (20.5-51.1); MEAN CORPUSCULAR HEMOGLOBIN 33 pg (27-31); MEAN CORPUSCULAR HGB CONC 35 g/dL (33-37); MEAN CORPUSCULAR VOLUME 95.7 fL (80-94); MONOCYTES # (AUTO) 0.7 K/uL (0.8-1.0); MONOCYTES % (AUTO) 9.8 % (1.7-9.3); NEUTROPHILS # (AUTO) 5.5 K/uL (1.8-7.7); NEUTROPHILS % (AUTO) 76.3 % (42.2-75.2); PLATELET COUNT (AUTO) 31 K/uL (140-450); RED BLOOD CELL COUNT(AUTO) 2.13 MIL/uL (4.20-6.10); WHITE BLOOD COUNT (AUTO) 7.2 K/uL (4.8-10.8)
[2023-06-05] VITALS (27 sets, daily range): BP systolic 111–134; BP diastolic 56–101; PULSE 83–96; RESP 14–36; TEMP 96.3–97.4; O2SAT 93–100
[2023-06-05 05:55] LABS: MAGNESIUM 2.3 mg/dL (1.8-2.4); PHOSPHORUS 3.8 mg/dL (2.5-4.9)
[2023-06-05 05:59] LABS: ANION GAP 8.3 (8-16); CARBON DIOXIDE 27.7 mmol/L (21-32); CREATININE 1.3 mg/dL (0.6-1.3)
[2023-06-05 06:00] LABS: BASOPHILS # (AUTO) 0.1 K/uL (0.00-0.22); BASOPHILS % (AUTO) 1.3 % (0.0-2.0); EOSINOPHILS # (AUTO) 0.1 K/uL (0-0.4); EOSINOPHILS % (AUTO) 2.1 % (0.0-4.0); LYMPHOCYTES # (AUTO) 0.7 K/uL (2.0-11.5); LYMPHOCYTES % (AUTO) 11.3 % (20.5-51.1); MEAN CORPUSCULAR HEMOGLOBIN 34 pg (27-31); MEAN CORPUSCULAR HGB CONC 35 g/dL (33-37); MONOCYTES # (AUTO) 0.6 K/uL (0.8-1.0); MONOCYTES % (AUTO) 9.4 % (1.7-9.3); NEUTROPHILS # (AUTO) 4.9 K/uL (1.8-7.7); NEUTROPHILS % (AUTO) 75.9 % (42.2-75.2); PLATELET COUNT (AUTO) 29 K/uL (140-450); RED BLOOD CELL COUNT(AUTO) 1.98 MIL/uL (4.20-6.10); RED CELL DISTRIBUTION WIDTH 18.8 % (11.6-13.7); WHITE BLOOD COUNT (AUTO) 6.4 K/uL (4.8-10.8)
[2023-06-05 06:24] LABS: HEMOGLOBIN 6.6 g/dL (12.0-18.0)
[2023-06-05 15:14] LABS: HEMOGLOBIN 8.1 g/dL (12.0-18.0)
[2023-06-05] MEDS: FUROSEMIDE 40 MG/4 ML VIAL IVP SCH (18:56)
[2023-06-05] MEDS: THIAMINE IV SCH (20:06)
[2023-06-05] MEDS: MULTIVITAMIN IV SCH (20:06)
[2023-06-05] MEDS: DEXTROSE IV SCH (20:06)
[2023-06-05] MEDS: [UNRECOGNIZED DRUG - OTHER] IV SCH (20:06)
[2023-06-06] VITALS (28 sets, daily range): BP systolic 92–128; BP diastolic 43–81; PULSE 79–91; RESP 12–24; TEMP 96.5–96.9; O2SAT 96–100
[2023-06-06 06:04] LABS: ANION GAP 9.4 (8-16); CALCIUM 7.1 mg/dL (8.5-10.1); CARBON DIOXIDE 29.1 mmol/L (21-32); CREATININE 1.2 mg/dL (0.6-1.3); POTASSIUM 3.5 mmol/L (3.5-5.1)
[2023-06-06 06:12] LABS: MAGNESIUM 2.1 mg/dL (1.8-2.4); PHOSPHORUS 4.3 mg/dL (2.5-4.9)
[2023-06-06 07:58] LABS: BASOPHILS # (AUTO) 0.1 K/uL (0.00-0.22); EOSINOPHILS # (AUTO) 0.1 K/uL (0-0.4); HEMATOCRIT 22.2 % (36-52); HEMOGLOBIN 7.5 g/dL (12.0-18.0); LYMPHOCYTES # (AUTO) 0.7 K/uL (2.0-11.5); MEAN CORPUSCULAR HEMOGLOBIN 32 pg (27-31); MEAN CORPUSCULAR HGB CONC 34 g/dL (33-37); MEAN CORPUSCULAR VOLUME 94.1 fL (80-94); MONOCYTES # (AUTO) 0.5 K/uL (0.8-1.0); MONOCYTES % (AUTO) 8.2 % (1.7-9.3); NEUTROPHILS # (AUTO) 4.3 K/uL (1.8-7.7); NEUTROPHILS % (AUTO) 75.8 % (42.2-75.2); PLATELET COUNT (AUTO) 40 K/uL (140-450); RED BLOOD CELL COUNT(AUTO) 2.36 MIL/uL (4.20-6.10); RED CELL DISTRIBUTION WIDTH 19.1 % (11.6-13.7); WHITE BLOOD COUNT (AUTO) 5.6 K/uL (4.8-10.8)
[2023-06-06] MEDS: LORazepam 2 MG/ML VIAL IVP PRN (10:50)
[2023-06-06] MEDS: ACETAMINOPHEN 325 MG TAB PO PRN (12:52)
[2023-06-06] MEDS: BLOOD GLUCOSE MONITORING 1 DEV DEV MC SCH (20:18)
[2023-06-07] VITALS (20 sets, daily range): BP systolic 109–131; BP diastolic 64–81; PULSE 78–91; RESP 11–25; TEMP 96.2–97.5; O2SAT 81–99
[2023-06-07 04:38] LABS: ANION GAP 7.5 (8-16); CARBON DIOXIDE 28.8 mmol/L (21-32); CREATININE 1.3 mg/dL (0.6-1.3); POTASSIUM 3.3 mmol/L (3.5-5.1)
[2023-06-07 04:39] LABS: PHOSPHORUS 4.6 mg/dL (2.5-4.9)
[2023-06-07 07:55] LABS: BASOPHILS % (AUTO) 0.9 % (0.0-2.0); EOSINOPHILS # (AUTO) 0.2 K/uL (0-0.4); EOSINOPHILS % (AUTO) 3.3 % (0.0-4.0); HEMOGLOBIN 7.7 g/dL (12.0-18.0); LYMPHOCYTES # (AUTO) 0.7 K/uL (2.0-11.5); LYMPHOCYTES % (AUTO) 14.7 % (20.5-51.1); MEAN CORPUSCULAR HEMOGLOBIN 33 pg (27-31); MEAN CORPUSCULAR HGB CONC 35 g/dL (33-37); MEAN CORPUSCULAR VOLUME 94.3 fL (80-94); MONOCYTES # (AUTO) 0.5 K/uL (0.8-1.0); MONOCYTES % (AUTO) 10.3 % (1.7-9.3); NEUTROPHILS # (AUTO) 3.5 K/uL (1.8-7.7); NEUTROPHILS % (AUTO) 70.8 % (42.2-75.2); PLATELET COUNT (AUTO) 36 K/uL (140-450); RED BLOOD CELL COUNT(AUTO) 2.34 MIL/uL (4.20-6.10); RED CELL DISTRIBUTION WIDTH 19.4 % (11.6-13.7)
[2023-06-07] MEDS: KCL 20 MEQ IN 100 mL PREMIX 200 ML IV PRN (09:03)
[2023-06-07] MEDS: SUPREP BOWEL PREP KIT 354 ML SOLN.RECON PO SCH (12:09)
[2023-06-07] MEDS: ERYTHROMYCIN 250 MG in NACL 0.9% 100 ML IV SCH (13:39)
[2023-06-07] MEDS: BLOOD GLUCOSE MONITORING 1 DEV DEV MC SCH (18:42)
[2023-06-07] MEDS: PANTOPRAZOLE 40 MG INJ VIAL IVP SCH (21:14)
[2023-06-08] VITALS: BP 102/63; PULSE 88; RESP 22; TEMP 98.1; O2SAT 98
[2023-06-08 06:31] LABS: ANION GAP 9.3 (8-16); CALCIUM 7.2 mg/dL (8.5-10.1); CARBON DIOXIDE 28.2 mmol/L (21-32); CREATININE 1.3 mg/dL (0.6-1.3); POTASSIUM 3.5 mmol/L (3.5-5.1)
[2023-06-08 06:46] LABS: PHOSPHORUS 4.7 mg/dL (2.5-4.9)
[2023-06-08 08:00] VITALS: BP 113/74; PULSE 81; PULSE 88; RESP 18; RESP 22; TEMP 97.6; O2SAT 98
[2023-06-08 16:00] VITALS: BP 108/68; PULSE 78; RESP 20; TEMP 97.6; O2SAT 98
[2023-06-08 20:00] VITALS: PULSE 71; RESP 23; TEMP 96.8; O2SAT 95
[2023-06-08] MEDS: CRUSHER, PILL MC ONE (21:03)
[2023-06-08 23:39] VITALS: O2SAT 97
[2023-06-09] VITALS (8 sets, daily range): BP systolic 95–101; BP diastolic 61–68; PULSE 71–93; RESP 18–24; TEMP 96.1–97.8; O2SAT 94–97
[2023-06-09 05:56] LABS: PHOSPHORUS 5.4 mg/dL (2.5-4.9)
[2023-06-09 06:56] LABS: ANION GAP 11.1 (8-16); CALCIUM 7.4 mg/dL (8.5-10.1); CARBON DIOXIDE 27.4 mmol/L (21-32); CREATININE 1.4 mg/dL (0.6-1.3); POTASSIUM 3.5 mmol/L (3.5-5.1)
[2023-06-09 08:25] LABS: BASOPHILS % (AUTO) 0.7 % (0.0-2.0); EOSINOPHILS # (AUTO) 0.1 K/uL (0-0.4); EOSINOPHILS % (AUTO) 3.5 % (0.0-4.0); HEMATOCRIT 20.6 % (36-52); HEMOGLOBIN 7.2 g/dL (12.0-18.0); LYMPHOCYTES # (AUTO) 0.5 K/uL (2.0-11.5); LYMPHOCYTES % (AUTO) 14.2 % (20.5-51.1); MEAN CORPUSCULAR HEMOGLOBIN 33 pg (27-31); MEAN CORPUSCULAR HGB CONC 35 g/dL (33-37); MEAN CORPUSCULAR VOLUME 94.7 fL (80-94); MONOCYTES # (AUTO) 0.3 K/uL (0.8-1.0); MONOCYTES % (AUTO) 7.8 % (1.7-9.3); NEUTROPHILS # (AUTO) 2.8 K/uL (1.8-7.7); NEUTROPHILS % (AUTO) 73.8 % (42.2-75.2); PLATELET COUNT (AUTO) 23 K/uL (140-450); RED BLOOD CELL COUNT(AUTO) 2.18 MIL/uL (4.20-6.10); RED CELL DISTRIBUTION WIDTH 20.2 % (11.6-13.7); WHITE BLOOD COUNT (AUTO) 3.7 K/uL (4.8-10.8)
[2023-06-09] MEDS: ALBUMIN HUMAN 25% 100 ML IV SCH (16:47)
[2023-06-09] MEDS: ALBUMIN HUMAN 25% 100 ML IV ONE (16:49)
[2023-06-10] VITALS (7 sets, daily range): BP systolic 92–109; BP diastolic 59–66; PULSE 93–105; RESP 18–30; TEMP 96.3–99.2; O2SAT 96–100
[2023-06-10 05:39] LABS: ANION GAP 11.7 (8-16); CALCIUM 7.4 mg/dL (8.5-10.1); CARBON DIOXIDE 26.9 mmol/L (21-32); CREATININE 1.7 mg/dL (0.6-1.3); POTASSIUM 3.6 mmol/L (3.5-5.1)
[2023-06-10 08:07] LABS: MEAN CORPUSCULAR HEMOGLOBIN 33 pg (27-31); MEAN CORPUSCULAR HGB CONC 34 g/dL (33-37); MEAN CORPUSCULAR VOLUME 97.2 fL (80-94); RED BLOOD CELL COUNT(AUTO) 1.93 MIL/uL (4.20-6.10); RED CELL DISTRIBUTION WIDTH 24.9 % (11.6-13.7); WHITE BLOOD COUNT (AUTO) 4.7 K/uL (4.8-10.8)
[2023-06-10 08:17] LABS: HEMATOCRIT 18.8 % (36-52); HEMOGLOBIN 6.4 g/dL (12.0-18.0)
[2023-06-10 08:19] LABS: PLATELET COUNT (AUTO) 29 K/uL (140-450)
[2023-06-10 08:40] LABS: LYMPHOCYTES % (MANUAL) 12 % (20-46); MONOCYTES % (MANUAL) 9 % (5-12)
[2023-06-10 08:41] LABS: BASOPHILS % (MANUAL) 2 % (0-2); EOSINOPHILS % (MANUAL) 4 % (0-4)
[2023-06-10] MEDS: ALBUMIN HUMAN 25% 100 ML IV SCH (13:00)
[2023-06-10 17:35] LABS: HEMOGLOBIN 7.5 g/dL (12.0-18.0); MEAN CORPUSCULAR HGB CONC 35 g/dL (33-37)
[2023-06-10 18:34] LABS: BASOPHILS % (AUTO) 0.7 % (0.0-2.0); EOSINOPHILS # (AUTO) 0.2 K/uL (0-0.4); HEMATOCRIT 21.4 % (36-52); LYMPHOCYTES # (AUTO) 0.7 K/uL (2.0-11.5); LYMPHOCYTES % (AUTO) 16.8 % (20.5-51.1); MEAN CORPUSCULAR HEMOGLOBIN 34 pg (27-31); MEAN CORPUSCULAR VOLUME 95.2 fL (80-94); MONOCYTES # (AUTO) 0.5 K/uL (0.8-1.0); MONOCYTES % (AUTO) 12.3 % (1.7-9.3); NEUTROPHILS # (AUTO) 2.7 K/uL (1.8-7.7); NEUTROPHILS % (AUTO) 66.2 % (42.2-75.2); PLATELET COUNT (AUTO) 34 K/uL (140-450); RED BLOOD CELL COUNT(AUTO) 2.25 MIL/uL (4.20-6.10); RED CELL DISTRIBUTION WIDTH 19.5 % (11.6-13.7); WHITE BLOOD COUNT (AUTO) 4.1 K/uL (4.8-10.8)
[2023-06-11] VITALS (9 sets, daily range): BP systolic 119–124; BP diastolic 74; PULSE 99–113; RESP 20–30; TEMP 96.5–98.5; O2SAT 94–99
[2023-06-11 16:25] LABS: BASOPHILS % (AUTO) 0.7 % (0.0-2.0); EOSINOPHILS # (AUTO) 0.1 K/uL (0-0.4); EOSINOPHILS % (AUTO) 4.1 % (0.0-4.0); LYMPHOCYTES # (AUTO) 0.6 K/uL (2.0-11.5); MEAN CORPUSCULAR HEMOGLOBIN 34 pg (27-31); MEAN CORPUSCULAR HGB CONC 34 g/dL (33-37); MEAN CORPUSCULAR VOLUME 98.6 fL (80-94); MONOCYTES # (AUTO) 0.3 K/uL (0.8-1.0); MONOCYTES % (AUTO) 8.3 % (1.7-9.3); NEUTROPHILS # (AUTO) 2.6 K/uL (1.8-7.7); NEUTROPHILS % (AUTO) 70.9 % (42.2-75.2); PLATELET COUNT (AUTO) 32 K/uL (140-450); RED BLOOD CELL COUNT(AUTO) 1.94 MIL/uL (4.20-6.10); RED CELL DISTRIBUTION WIDTH 23.7 % (11.6-13.7); WHITE BLOOD COUNT (AUTO) 3.7 K/uL (4.8-10.8)
[2023-06-11 16:43] LABS: HEMATOCRIT 19.2 % (36-52); HEMOGLOBIN 6.6 g/dL (12.0-18.0)
[2023-06-12] VITALS (12 sets, daily range): BP systolic 93–114; BP diastolic 56–72; PULSE 83–107; RESP 20–24; TEMP 97.7–98.2; O2SAT 93–99
[2023-06-12 01:50] LABS: BLOOD GAS BASE EXCESS -1.4 mmol/L (-2.0-2.0); BLOOD GAS HCO3 23.7 mmol/L (22-26); BLOOD GAS PCO2 41.4 mmHg (35-45); BLOOD GAS PH 7.376 (7.35-7.45); BLOOD GAS PO2 85.6 mmHg (75-100)
[2023-06-12 01:51] LABS: BLOOD GAS O2 SAT% 94.8 % (92.0-98.5)
[2023-06-12 07:30] LABS: BASOPHILS # (AUTO) 0.1 K/uL (0.00-0.22); BASOPHILS % (AUTO) 0.6 % (0.0-2.0); EOSINOPHILS # (AUTO) 0.1 K/uL (0-0.4); EOSINOPHILS % (AUTO) 0.4 % (0.0-4.0); HEMATOCRIT 25.9 % (36-52); HEMOGLOBIN 8.8 g/dL (12.0-18.0); LYMPHOCYTES # (AUTO) 1.1 K/uL (2.0-11.5); LYMPHOCYTES % (AUTO) 6.8 % (20.5-51.1); MEAN CORPUSCULAR HEMOGLOBIN 33 pg (27-31); MEAN CORPUSCULAR HGB CONC 34 g/dL (33-37); MEAN CORPUSCULAR VOLUME 95.6 fL (80-94); MONOCYTES # (AUTO) 1.2 K/uL (0.8-1.0); MONOCYTES % (AUTO) 7.5 % (1.7-9.3); NEUTROPHILS # (AUTO) 13.5 K/uL (1.8-7.7); NEUTROPHILS % (AUTO) 84.7 % (42.2-75.2); PLATELET COUNT (AUTO) 35 K/uL (140-450); RED BLOOD CELL COUNT(AUTO) 2.71 MIL/uL (4.20-6.10); RED CELL DISTRIBUTION WIDTH 18.4 % (11.6-13.7); WHITE BLOOD COUNT (AUTO) 15.9 K/uL (4.8-10.8)
[2023-06-12 07:51] LABS: ALBUMIN 1.8 g/dL (3.4-5.0); ANION GAP 12.1 (8-16); CALCIUM 7.8 mg/dL (8.5-10.1); CARBON DIOXIDE 27.6 mmol/L (21-32); POTASSIUM 3.7 mmol/L (3.5-5.1); TOTAL PROTEIN, SERUM 5.7 g/dL (6.4-8.2)
[2023-06-12] MEDS: DEXTROSE 5% 1,000 ML IV SCH (14:30)
[2023-06-12] MEDS: SILVER NITRATE APPLICATOR 1 EA SWAB TP ONE (18:45)
[2023-06-12] MEDS: SILVER NITRATE APPLICATOR 1 EA SWAB TP SCH (21:30)
[2023-06-12] MEDS: PIPERACILLIN/TAZOBACTAM 3.375 GM in DEXTROSE 5% 50 ML IV SCH (23:28)
[2023-06-12] MEDS: PIPERACILLIN/TAZOBACTAM 3.375 GM VIAL IV ONE (23:29)
[2023-06-13] VITALS: BP 120/67; PULSE 83; PULSE 90; RESP 19; TEMP 98; O2SAT 95
[2023-06-13 04:00] VITALS: PULSE 93
[2023-06-13] MEDS: PIPERACILLIN/TAZOBACTAM 3.375 GM in DEXTROSE 5% 50 ML IV SCH (05:05)
[2023-06-13] MEDS: PIPERACILLIN/TAZOBACTAM 3.375 GM VIAL IV ONE (05:06)
[2023-06-13 08:00] VITALS: BP 118/61; PULSE 101; PULSE 106; PULSE 83; RESP 20; RESP 28; TEMP 96.6; TEMP 98.2; O2SAT 99
[2023-06-13 12:00] VITALS: BP 88/26; PULSE 103; PULSE 106; RESP 24; TEMP 98.6; O2SAT 96
[2023-06-13] MEDS: ALBUMIN HUMAN 25% 50 ML IV SCH (13:04)
[2023-06-13 14:04] VITALS: O2SAT 92
[2023-06-13 16:00] VITALS: BP 91/23; PULSE 94; RESP 24; TEMP 97.5; O2SAT 88
== END 2023-06-13 22:40 | DRG 720 ==
LOC: MED 04:30 → MTU 07:46 → MIC 11:29 → MTU 06-07 20:30
PROVIDERS: ADMIT Student in an Organized Health Care Education/Training Program; ATTEND Student in an Organized Health Care Education/Training Program
PROC: 0BH17EZ Insertion of Endotracheal Airway into Trachea, Via Natural or Artificial Opening (ICD-10-PCS; 2023-05-21)
PROC: 0DJ08ZZ Inspection of Upper Intestinal Tract, Via Natural or Artificial Opening Endoscopic (ICD-10-PCS; 2023-05-21)
PROC: 5A1955Z Respiratory Ventilation, Greater than 96 Consecutive Hours (ICD-10-PCS; principal; 2023-05-21 13:25)
PROC: 30233Q1 Transfusion of Nonautologous White Cells into Peripheral Vein, Percutaneous Approach (ICD-10-PCS; 2023-05-25)
PROC: 5A0955A Assistance with Respiratory Ventilation, Greater than 96 Consecutive Hours, High Flow/Velocity Cannula (ICD-10-PCS; 2023-05-28)
PROC: 02HV33Z Insertion of Infusion Device into Superior Vena Cava, Percutaneous Approach (ICD-10-PCS; 2023-05-31)
PROC: B548ZZA Ultrasonography of Superior Vena Cava, Guidance (ICD-10-PCS; 2023-05-31)
PROC: 30233N1 Transfusion of Nonautologous Red Blood Cells into Peripheral Vein, Percutaneous Approach (ICD-10-PCS; 2023-06-04)
PROC: 30233N1 Transfusion of Nonautologous Red Blood Cells into Peripheral Vein, Percutaneous Approach (ICD-10-PCS; 2023-06-05)
PROC: 30233N1 Transfusion of Nonautologous Red Blood Cells into Peripheral Vein, Percutaneous Approach (ICD-10-PCS; 2023-06-11)
PROC: 30233N1 Transfusion of Nonautologous Red Blood Cells into Peripheral Vein, Percutaneous Approach (ICD-10-PCS; 2023-06-12)
DX: A41.9 Sepsis, unspecified organism (principal); J96.01 Acute respiratory failure with hypoxia; N17.0 Acute kidney failure with tubular necrosis; J69.0 Pneumonitis due to inhalation of food and vomit; K76.82 Hepatic encephalopathy; D63.8 Anemia in other chronic diseases classified elsewhere; D62 Acute posthemorrhagic anemia; E87.1 Hypo-osmolality and hyponatremia; K72.10 Chronic hepatic failure without coma; G40.89 Other seizures; K56.7 Ileus, unspecified; K70.31 Alcoholic cirrhosis of liver with ascites; K92.2 Gastrointestinal hemorrhage, unspecified; D68.9 Coagulation defect, unspecified; E66.9 Obesity, unspecified; D69.6 Thrombocytopenia, unspecified; J32.0 Chronic maxillary sinusitis; F10.10 Alcohol abuse, uncomplicated; K76.6 Portal hypertension; I51.7 Cardiomegaly; E87.0 Hyperosmolality and hypernatremia; Z79.899 Other long term (current) drug therapy; Z68.35 Body mass index [BMI] 35.0-35.9, adult
CPT/HCPCS: 31500; 36415; 36430; 36600; 70450; 70490; 71045; 74018; 74250; 76705; 80048; 80053; 80076; 81001; 82040; 82105; 82140; 82378; 82533; 82803; 82948; 83605; 83735; 83880; 84100; 84439; 84443; 84478; 85018; 85025; 85610; 85730; 86301; 86886; 86900; 86901; 86920; 87040; 87070; 87081; 87086; 87186; 87205; 89220; 92526; 93971; 94002; 94003; 94640; 96361; 96365; 96375; 97110; 97112; 97163-GP; 97530; 99291; A9153; C9113; J0610; J0696; J1364; J1815; J1940; J1953; J2001; J2060; J2185; J2250; J2270; J2354; J2543; J2704; J2765; J2920; J3010; J3411; J3430; J3480; J3490; J7030; J7060; P9016; P9035; P9046; Q0092; Q9967